=== PATIENT | male | born 1970 | race Caucasian/White ===

== ENCOUNTER 2024-03-10 13:33 | Emergency (ER) | payer OTHER, SELFPAY ==
[2024-03-10 14:10] VITALS: BP 160/112; PULSE 78; RESP 16; TEMP 36.8; O2SAT 98; BMI 27.2
--- NOTE | 2024-03-10 14:10 | ED_ITS ---
HPI - Dizziness General Chief Complaint: Dizziness Stated Complaint: Lightheaded Time Seen by Provider: 03/10/24 16:03 History of Present Illness HPI Narrative: The patient is a 53-year-old male who seems to have history of hypertension which has been largely untreated. He does not have a primary care doctor. He says he was hospitalized at [facility] about a year ago for cholecystitis. Apparently his blood pressures were high during that hospitalization and he was discharged with a prescription for telmisartan 20 mg daily. Patient did not take this medication with any regularity and he still has some of his original prescription. He has also not had a regular doctor for a long time. He has not seen a primary care doctor since he was prescribed the telmisartan. The patient has a blood pressure machine at home. His blood pressures have been running high. Over the last couple of weeks he has also had episodes of lightheadedness. 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 He was cleaning up his station when he felt abruptly lightheaded as if he might pass out. The symptoms lasted only a minute or 2. He felt better very quickly and came to the emergency room for evaluation. No associated headache or chest pain. No associated shortness of breath. Related Data Previous Rx's ?Medication ?Instructions ?Recorded telmisartan 20 mg tablet 40 mg (2 x 20 mg) PO DAILY 30 days 03/10/24 #60 tabs Allergies Allergy/AdvReac Type Severity Reaction Status Date / Time ciprofloxacin [From CIPRO] Allergy Severe UNKNOWN Verified 03/10/24 14:13 levofloxacin [From LEVAQUIN] Allergy Severe UNKNOWN Verified 03/10/24 14:13 moxifloxacin [From AVELOX] Allergy Severe UNKNOWN Verified 03/10/24 14:13 ofloxacin [From FLOXIN] Allergy Severe UNKNOWN Verified 03/10/24 14:13 gemifloxacin [From FACTIVE] Allergy Unknown UNKNOWN Verified 03/10/24 14:13 minoxidil [MINOXIDIL] Allergy Unknown UNKNOWN Verified 03/10/24 14:13 norfloxacin [From NOROXIN] Allergy Unknown UNKNOWN Verified 03/10/24 14:13 DAIRY PRODUCTS Allergy Unknown UNKNOWN Uncoded 03/10/24 14:13 Review of Systems 2 Review of Systems: Yes all other systems are reviewed and are negative [facility] Social History Social History Advance Directives: No Advance Directives Information Provided: Yes Physical Exam 2 Vital Signs: Vital Signs: Last Vital Signs Temp 98.2 F 03/10/24 14:10 Pulse 78 03/10/24 14:10 Resp 16 03/10/24 14:10 BP 160/112 H 03/10/24 14:10 Pulse Ox 98 03/10/24 14:10 O2 Del Method Room Air 03/10/24 14:10 BMI result Body Mass Index 27.2 Const: Other: The patient is awake and alert, pleasant and cooperative, he does not appear in any acute distress. HEENT: Other: Face is symmetrical. Mucous membranes moist. Eyes: Other: Pupils are round equal, conjunctivae are clear, extraocular movements intact. Funduscopic exam is grossly normal. Neck: Neck: Yes no JVD Resp: Effort & Inspection: normal respiratory effort Auscultation: clear to auscultation bilaterally Cardio: Rate: regular rate Rhythm: regular rhythm Heart sounds: S1 normal heart sound present and S2 normal heart sound present GI: Other: Abdomen was soft and nontender Skin: Other: Skin is dry and unremarkable Neuro: Other: The patient is awake and alert. Mental status is clear. Cranial nerves are intact. He moves all 4 extremities normally. He is grossly neurologically intact. Extrem: Other: No calf swelling or tenderness. No edema. Course Course Course Narrative: This is an RME: Additional HPI, ROS, PE not included below will be deferred to primary provider. Patient is a 53-year-old male presenting department with complaints of constant lightheadedness described as a persistent near-syncope feeling varying intensity. Reports history of intermittent lightheadedness in the past, been more severe over the past 3 days. Unable to identify exacerbating or alleviating factors. Reports shortness of breath at baseline but denies any changes to this. Denies chest pain. Does admit 1 week ago beginning a new HTN medication, Telmisartan. Plan: Labs, EKG, orthostatic VS Medical Decision Making Medical Decision Making MDM Narrative: The patient is a 53-year-old male who presents with symptoms of lightheadedness and dizziness. His description of the symptoms are quite nonspecific. His physical exam seems very reassuring. He is hypertensive. He does not have a primary care doctor. His labs are unremarkable. EKG is unremarkable. I do not have a high suspicion for an acute vascular emergency. I think the patient likely has problems related to chronic hypertension. He is currently asymptomatic. I do not think he requires hospitalization. He has previously been prescribed telmisartan and he seems to have had the same prescription for over a year. He seems to be taking only very small doses of the telmisartan very occasionally. I explained to the patient that he has problems with chronic high blood pressure and then he needs to get a regular doctor and take regular antihypertensive medications. The patient grudgingly seems to acknowledge that this is the case. He has [employer]. I think he may be discharged with instructions to take the telmisartan at a full dose and take it regularly. I have written a prescription for additional medication. He needs to contact [facility] in the morning to work on getting a primary care doctor as fast as he can. Lab Data 03/10/24 14:42 03/10/24 14:42 Labs: Lab Results 03/10/24 Range/Units 14:42 WBC 7.7 (4.8-10.8) X10*3/uL RBC 5.45 (4.60-5.80) X10*6/uL Hgb 16.1 (14.0-18.0) g/dl Hct 46.2 (42.0-52.0) % MCV 84.8 (80.0-98.0) fL MCH 29.5 (27.0-33.0) pg MCHC 34.8 (31.0-36.0) g/dl RDW 13.6 (11.0-16.0) % Plt Count 254 (160-400) X10*3/uL MPV 9.6 (9.4-12.4) fL Immature Gran % (Auto) 0.1 (0.0-0.4) % Neut % (Auto) 65.0 (45-73) % Lymph % (Auto) 26.8 (20-40) % [place] % (Auto) 6.2 (2-11) % Eos % (Auto) 1.3 (0-4) % Baso % (Auto) 0.6 (0-2) % Lymph # (Auto) 2.1 (1.2-4.9) X10*3/uL [place] # (Auto) 0.5 (0.1-1.2) X10*3/uL Eos # (Auto) 0.1 (0.0-0.4) X10*3/uL Baso # (Auto) 0.1 (0.0-0.2) X10*3/uL Abs Immat Gran (auto) 0.01 (0.00-0.03) X10*3/uL Absolute Neuts (auto) 5.0 (2.0-8.3) x10*3/uL Absolute Nucleated RBC 0.000 (0.0-0.012) X10*3/uL Nucleated RBC % (auto) 0.0 (0.0-0.2) /100WBC PT 12.2 (11.1-13.3) SEC INR 1.0 (0.9-1.1) Sodium 142 (135-145) mmol/L Potassium 3.5 (3.3-5.1) mmol/L Chloride 104 (96-108) mmol/L Carbon Dioxide 30 H (22-29) mmol/L Anion Gap 12 (12-20) BUN 10 (9-16) mg/dL Creatinine 0.86 (0.5-1.4) mg/dL Estim Creat Clear Calc 100.2 Estimated GFR > 60 Random Glucose 84 (60-115) mg/dL Calcium 9.3 (8.4-10.2) mg/dL Magnesium 2.5 (1.6-2.6) mg/dL Total Bilirubin 0.8 (0.0-1.0) mg/dL AST 33 (5-37) U/L ALT 31 (0-40) U/L Alkaline Phosphatase 111 (39-117) U/L Troponin I High Sens < 2.7 (<3.5-35.0) ng/L Total Protein 7.8 (6.5-8.0) g/dL Albumin 4.1 (3.5-5.0) g/dL Influenza Type A (PCR) NEGATIVE (Negative) Influenza Type B (PCR) NEGATIVE (Negative) RSV RNA Qual (PCR) NEGATIVE (Negative) SARS-CoV-2 RNA (RT-PCR) NEGATIVE (Negative) Discharge Plan Discharge Clinical Impression: Episodic lightheadedness, Hypertension Patient Disposition: Home, Self-Care Additional Instructions: Your testing in the emergency room today is quite reassuring. I suspect that your symptoms may be related to your high blood pressures. I would strongly recommend that you begin taking blood pressure medication on a regular basis. I would take 20 mg of telmisartan today and recheck your blood pressure tomorrow. If your blood pressure is over 140/90 I would start taking 20 mg of telmisartan daily. I think the most important thing that you can do to help your health other than regularly taking your blood pressure medications would be to get a primary care doctor. Please contact your insurance tomorrow morning to get a list of primary care doctors in this area who accept your insurance and work on getting a new appointment as soon as possible. Return to the emergency department if significantly worse. Prescriptions: New telmisartan 20 mg tablet 40 mg PO DAILY 30 Days Qty: 60 0RF Discharge Date/Time: 03/10/24 17:20 Print Language: Greenlandic
--- NOTE | 2024-03-10 14:13 | ECG_ITS ---
Test Reason : PRE-SYNCOPE Blood Pressure : / mmHG Vent. Rate : 076 BPM Atrial Rate : 076 BPM P-R Int : 156 ms QRS Dur : 096 ms QT Int : 392 ms P-R-T Axes : 022 -07 014 degrees QTc Int : 441 ms Normal sinus rhythm Normal ECG When compared with ECG of 25-SEP-2018 20:28, No significant change was found Referred By: Bhavana Agarwal Electronically Signed By:MANUEL SAGE
[2024-03-10 14:48] LABS: MANUAL DIFF FLAG NO
[2024-03-10 14:50] LABS: Basophils Absolute Auto 0.1 X10*3/uL (0.0-0.2); Basophils Percent Auto 0.6 % (0-2); Eosinophils Absolute Auto 0.1 X10*3/uL (0.0-0.4); Eosinophils Percent Auto 1.3 % (0-4); Hematocrit 46.2 % (42.0-52.0); Hemoglobin 16.1 g/dl (14.0-18.0); Imm Gran Abs Auto 0.01 X10*3/uL (0.00-0.03); Imm Gran Pct Auto 0.1 % (0.0-0.4); Lymphocytes Absolute Auto 2.1 X10*3/uL (1.2-4.9); Lymphocytes Percent Auto 26.8 % (20-40); Mean Corpuscular HGB Conc 34.8 g/dl (31.0-36.0); Mean Corpuscular Hemoglobin 29.5 pg (27.0-33.0); Mean Corpuscular Volume 84.8 fL (80.0-98.0); Mean Platelet Volume 9.6 fL (9.4-12.4); Monocytes Absolute Auto 0.5 X10*3/uL (0.1-1.2); Monocytes Percent Auto 6.2 % (2-11); Platelet Count 254 X10*3/uL (160-400); Red Blood Count 5.45 X10*6/uL (4.60-5.80); Red Cell Distribution Width 13.6 % (11.0-16.0); White Blood Count 7.7 X10*3/uL (4.8-10.8)
--- OUTSIDE RECORDS SUMMARY | 2024-03-10 14:52 | XMS_ITS | Continuity of Care Document ---
Author Organization [facility] Address [address] [place] [address]- Care Team Providers Care English Composition Instructor Name Role Phone Tano Vann MD Primary Care Physician Encounter [facility] [place] Date(s): 11/25/21 - 11/28/[address] [address]- Discharge Disposition: A-D/C Home Attending Physician: Amber Landaverde MD, Ruddy Admitting Physician: Yoan Zamora MD Referring Physician: Yoan Zamora MD Allergies, Adverse Reactions, Alerts Substance Reaction Severity Status minoxidil Active quinolone antibiotics Active Medications Augmentin 875 mg-125 mg oral tablet 1 tablet, By Mouth, Every 12 hours, for 5 days, # 10 tablet, 0 Refills, Acute 12/03/21 6:50:00 EST,11/28/21 6:50:00 EST, Tablet, [facility] # [facility], Partial fill upon patient request if the prescription is for a schedule II opioid drug., 178, cm,... Start Date: 11/28/21 Stop Date: 12/03/21 Status: Ordered telmisartan 20 mg oral tablet 1 tablet = 20 mg, By Mouth, Daily, # 30 tablet, 0 Refills, Maintenance, 11/28/21 9:33:00 EST, Tablet, [facility] # 302, Partial fill upon patient request if the prescription is for a schedule IIopioid drug., 178, cm, 11/28/21 2:45:00 EST, Height... Start Date: 11/28/21 Status: Ordered Results Orders for Microbiology Reports Name Date Blood Culture 11/26/21 Blood Culture #2 11/26/21 Microbiology Reports TEST:Blood Culture STATUS:Unauthenticated BODY SITE: SOURCE:Blood COLLECTED DATE/TIME:11/26/21 12:33 PM Blood Culture SPECIMEN DESCRIPTION : BLOOD RIGHT AC SPECIAL REQUESTS : NONE Test performed at [facility], [address] [place] [address], Bhumika Mi MD, Med Director, SIS [id number] CULTURE : NO GROWTH AFTER 48 HOURS REPORT STATUS : PRELIMINARY REPORT TEST:Blood Culture, Second Order STATUS:Unauthenticated BODY SITE: SOURCE:Blood COLLECTED DATE/TIME:11/26/21 12:33 PM Blood Culture, Second Order SPECIMEN DESCRIPTION : BLOOD RIGHT ARM SPECIAL REQUESTS : NONE Test performed at [facility], [address] [place] [address], Bhumika Mi MD, Med Director, SIS [id number] CULTURE : NO GROWTH AFTER 48 HOURS REPORT STATUS : PRELIMINARY REPORT Vital Signs Most recent to oldest [Reference Range]: 1 2 3 Height 178 cm (11/28/21 2:45 AM) 178 cm (11/27/21 7:16 PM) 178 cm (11/27/21 3:19 PM) Weight 81 kg (11/25/21 11:14 PM) 81 kg (11/25/21 8:43 PM) Oxygen Saturation [94-100 %] 98 % (11/28/21 2:45 AM) 99 % (11/27/21 7:16 PM) 97 % (11/27/21 3:19 PM) Pulse Rate [55-90 bpm] 85 bpm (11/28/21 2:45 AM) 89 bpm (11/27/21 7:16 PM) 84 bpm (11/27/21 3:19 PM) Body Mass Index [18.5-24.99] 25.56 *H* (11/25/21 8:43 PM) Blood Pressure [90-138/55-84 mm Hg] 162/97mm Hg *H* (11/28/21 2:45 AM) 154/101mm Hg *H* (11/27/21 7:16 PM) 154/102mm Hg *H* (11/27/21 3:19 PM) Respiratory Rate [16-30 br/min] 18 br/min (11/28/21 2:45 AM) 16 br/min (11/27/21 7:16 PM) 16 br/min (11/27/21 3:19 PM) Temperature [96.8-100.4 DegF] 98.0 DegF (11/28/21 2:45 AM) 98.0 DegF (11/27/21 7:16 PM) 98.3 DegF (11/27/21 3:19 PM) Liters per Minute 0 L/min (11/26/21 7:17 PM) 0 L/min (11/26/21 3:11 PM) 0 L/min (11/26/21 11:07 AM) Mode of Delivery (Oxygen) Room air (11/28/21 2:45 AM) Room air (11/27/21 7:16 PM) Room air (11/27/21 3:19 PM) Blood pressure sites Arm, left (11/28/21 2:45 AM) Arm, left (11/27/21 7:16 PM) Arm, right (11/27/21 3:19 PM) Temperature Route Oral (11/28/21 2:45 AM) Oral (11/27/21 7:16 PM) Oral (11/27/21 3:19 PM) Dry Weight 81 kg (11/25/21 11:14 PM) 81 kg (11/25/21 8:43 PM) Weight Obtained Via Bed scale (11/25/21 11:14 PM) Dry Weight Obtained Via Bed scale (11/25/21 11:14 PM) Social History Social History Type Response Smoking Status Never (less than 100 in lifetime) entered on: 04/25/19 Sex
--- OUTSIDE RECORDS SUMMARY | 2024-03-10 14:52 | XMS_ITS | Continuity of Care Document ---
Author Organization [facility] ter Address [address] [place] [address]- Care Team Providers Care Director Economic Name Role Phone Tano Vann MD Primary Care Physician Encounter [facility] [place] Date(s): 10/26/21 - 10/27/[address] [address]- Discharge Disposition: A-D/C Home Attending Physician: Cm Leal MD Admitting Physician: Cm Leal MD Referring Physician: Not on Staff, Referring MD Allergies, Adverse Reactions, Alerts Substance Reaction Severity Status minoxidil Active quinolone antibiotics Active Medications potassium chloride 10 mEq oral capsule, extended release 1 capsule = 10 mEq, By Mouth, Daily, half a pill, 0 Refills, Maintenance, 08/18/20 10:54:00 EDT, CRCapsule Start Date: 08/18/20 Status: Ordered Results Radiology Reports * Exam Date Time Procedure Performing Provider Status 10/26/21 8:24 PM Chest 2 Views Frontal and Lat Cm Gentile; Tiffani (Verified) Notes: (Chest 2 Views Frontal and Lat) Reason For Exam: Chest Pain;Other: RESULT: Chest 2 Views Frontal and Lat Chest 2 Views Frontal and Lat Hx of Present Illness: Chest discomfort and shoulder pain this morning. Shortness of breath, fatigue, lightheadedness and chills COMPARISON: 08/18/2020 FINDINGS: LINES AND TUBES: None. LUNGS AND PLEURA: Stable linear scarring left lateral CP angle. No new consolidation or edema. Normal vascularity. No pleural effusion. No pneumothorax. HEART, MEDIASTINUM AND JASVIR: Heart is normal in size. Normal upper mediastinal and hilar contour. BONES AND SOFT TISSUES: No acute abnormality. IMPRESSION: No acute abnormality. WSN: [id number] Ordering Physician: Caitlin Lockett MD Dictated By: Toni Arciniega MD Dictated Date/Time: 10/26/21 8:30 pm Reviewed By: Toni Arciniega MD Signed By: Toni Arciniega MD Signed Date/Time: 10/26/21 8:30 pm Transcribed By: VADIM Transcribed Date/Time: 10/26/21 8:28 pm Vital Signs Most recent to oldest [Reference Range]: 1 2 3 Height 178 cm (10/27/21 11:29 AM) 178 cm (10/27/21 10:43 AM) 178 cm (10/27/21 7:13 AM) Weight 82 kg (10/27/21 11:29 AM) 82 kg (10/27/21 10:43 AM) 82 kg (10/27/21 7:13 AM) Oxygen Saturation [94-100 %] 100 % (10/27/21 12:42 PM) 95 % (10/27/21 11:29 AM) 97 % (10/27/21 7:13 AM) Pulse Rate [55-90 bpm] 98 bpm *H* (10/27/21 12:42 PM) 100 bpm *H* (10/27/21 11:29 AM) 115 bpm *H* (10/27/21 7:13 AM) Body Mass Index [18.5-24.99] 25.88 *H* (10/27/21 11:29 AM) Blood Pressure [90-138/55-84 mm Hg] 150/92mm Hg *H* (10/27/21 12:42 PM) 138/104mm Hg (10/27/21 11:29 AM) 137/97mm Hg (10/27/21 7:13 AM) Respiratory Rate [16-30 br/min] 20 br/min (10/27/21 12:42 PM) 23 br/min (10/27/21 11:29 AM) 16 br/min (10/27/21 7:13 AM) Temperature [96.8-100.4 DegF] 98.3 DegF (10/27/21 11:29 AM) 99.7 DegF (10/27/21 7:13 AM) 99.2 DegF (10/27/21 7:07 AM) Mode of Delivery (Oxygen) Room air (10/27/21 12:42 PM) Room air (10/27/21 11:29 AM) Room air (10/27/21 7:13 AM) Blood pressure sites Arm, left (10/27/21 12:42 PM) Arm, left (10/27/21 11:29 AM) Arm, left (10/27/21 7:13 AM) Temperature Route Oral (10/27/21 11:29 AM) Oral (10/27/21 7:13 AM) Oral (10/27/21 7:07 AM) Weight Obtained Via Patient/family state d (10/27/21 7:13 AM) Social History Social History Type Response Smoking Status Never (less than 100 in lifetime) entered on: 04/25/19 Sex
[2024-03-10 15:02] LABS: Alanine Aminotransferase 31 U/L (0-40); Albumin Level 4.1 g/dL (3.5-5.0); Alkaline Phosphatase 111 U/L (39-117); Anion Gap 12 (12-20); Aspartate Amino Transferase 33 U/L (5-37); Bilirubin Total 0.8 mg/dL (0.0-1.0); Blood Urea Nitrogen 10 mg/dL (9-16); Calcium 9.3 mg/dL (8.4-10.2); Carbon Dioxide 30 mmol/L (22-29); Chloride 104 mmol/L (96-108); Creatinine Clr Calc Pharmacy 100.2; Estimated Glomerular Filt Rate > 60; Glucose Random 84 mg/dL (60-115); Magnesium 2.5 mg/dL (1.6-2.6); Potassium 3.5 mmol/L (3.3-5.1); Sodium 142 mmol/L (135-145); Total Protein 7.8 g/dL (6.5-8.0)
[2024-03-10 15:05] LABS: Prothrombin Time 12.2 SEC (11.1-13.3)
[2024-03-10 15:20] LABS: Troponin-I High Sensitivity < 2.7 ng/L (<3.5-35.0)
[2024-03-10 15:26] LABS: Influenza A PCR NEGATIVE (Negative); Influenza B PCR NEGATIVE (Negative); Resp Syncy Virus RNA Qual PCR NEGATIVE (Negative); SARS COV2 PCR INHOUSE NEGATIVE (Negative)
--- NOTE | 2024-03-10 17:19 | PC.NURSE ---
patient left prior to recieving discharge paperwork
== END 2024-03-10 17:20 | disposition home or self-care (01) ==
PROVIDERS: Nurse Practitioner Family; Emergency Provider Emergency Medicine
DX: R42 Dizziness and giddiness (principal); I10 Essential (primary) hypertension
CPT/HCPCS: 0241U; 36415; 80053; 83735; 84484; 85025; 85610; 93005; 99283

== ENCOUNTER → 2024-03-10 14:13 | Outpatient (BNV) | payer OTHER, SELFPAY | PROVIDERS: Emergency Provider Emergency Medicine; Visit Provider Internal Medicine | DX: R55 Syncope and collapse (principal) | CPT/HCPCS: 93010 ==